=== PATIENT | male | born 1950 | race Hispanic/Latino ===

== ENCOUNTER 2018-05-15 06:36 | Day surgery (SDC) | payer MEDICARE, MEDICAID ==
[2018-05-15] MEDS ORDERED: Lidocaine/Epinephrine 1% 1:100000 10 ML IJ ONE (06:53)
[2018-05-15] MEDS ORDERED: Oxymetazoline 0.05% Nasal Spray (30 ml) NS ONE ×2 (06:54→06:59)
[2018-05-15] MEDS ORDERED: ceFAZolin IV 1 gm in Dextrose 1 GM/50 ML BAG IVPB ONE ×2 (06:54→07:31)
[2018-05-15] MEDS ORDERED: EPINEPHrine 1:1000 Nasal Sol(30mL) ONE (06:54)
[2018-05-15 07:19] VITALS: TEMP 97.7
[2018-05-15] MEDS ORDERED: Dextrose 5%/0.45% NS 1,000 ML IV SCH (08:00)
[2018-05-15] MEDS ORDERED: Acetaminophen-Codeine 300/30 mg Tab PO PRN (08:00)
[2018-05-15] MEDS ORDERED: Propofol 10 mg/ml Inj (20 ML) ONE (08:01)
[2018-05-15] MEDS ORDERED: Midazolam 2 MG/2 ML VIAL ONE (08:01)
[2018-05-15] MEDS ORDERED: Rocuronium 10 mg/ml (5 ml) ONE (08:19)
[2018-05-15] MEDS ORDERED: Succinylcholine Chloride 20 mg/ml Syr (5 ml) IV ONE (08:19)
[2018-05-15] MEDS ORDERED: Etomidate 20 mg/10ml Inj IV ONE (08:19)
[2018-05-15] MEDS ORDERED: Neostigmine Methylsulfate 3mg/3ml Syringe IV ONE (08:32)
[2018-05-15 11:18] VITALS: RESP 16; O2SAT 95
[2018-05-15 11:47] VITALS: BP 143/78; PULSE 83
--- NOTE | 2018-05-15 19:25 | OP ---
PROCEDURE DATE: 05/15/2018 PREOPERATIVE DIAGNOSIS: Nasopharyngeal mass. POSTOPERATIVE DIAGNOSIS: Nasopharyngeal mass. PROCEDURE: Endoscopic nasopharyngeal mass biopsy. SIGNIFICANT FINDINGS: Nasopharyngeal mass. DESCRIPTION OF PROCEDURE: The patient was brought into the room, placed in supine position. Anesthesia was initiated through an ET tube. The patient was draped in the usual manner. Adrenaline-soaked pledgets were inserted into the nasal cavity. They remained there for 5 minutes and removed. A 0-degree scope was inserted into the left nasal cavity, passed into the nasopharynx. Nasopharyngeal mass was noted. Multiple biopsies were taken using forceps. Bleeding was controlled using suction cautery and adrenaline-soaked pledgets. The scope was removed. The patient was taken off anesthesia and taken to recovery room in stable manner. Wolfgang Mei MD
== END 2018-05-15 11:45 | disposition home or self-care (01) ==
LOC: C.SDS 06:36
PROVIDERS: ATTEND Otolaryngology
DX: J34.9 Unspecified disorder of nose and nasal sinuses (principal)
CPT/HCPCS: 42804; 88307; J0690; J2250; J2704; J2710; J3010

== ENCOUNTER 2018-06-29 06:03 | Day surgery (SDC) | payer MEDICARE, MEDICAID ==
[2018-06-29] MEDS ORDERED: ceFAZolin 1 gm FROZEN Premix 1 GM/50 ML ML IVPB ONE (08:37)
[2018-06-29] MEDS ORDERED: Succinylcholine Chloride 20 mg/ml Syr (5 ml) IV ONE (08:40)
[2018-06-29] MEDS ORDERED: Propofol 10 mg/ml Inj (20 ML) ONE ×2 (08:41→09:02)
[2018-06-29] MEDS ORDERED: HYDROmorphone 0.5 mg/0.5 ml ISec IVP PRN (09:00)
[2018-06-29] MEDS ORDERED: Labetalol 5mg/ml (4ml) ONE (09:13)
[2018-06-29] MEDS ORDERED: ePHEDrine 50 mg/ml Inj ONE (09:17)
[2018-06-29] MEDS ORDERED: Naloxone 0.4 mg/ml Inj (Adult) ONE (09:24)
[2018-06-29 09:53] VITALS: TEMP 97.1; O2SAT 98
[2018-06-29] MEDS ORDERED: Morphine 10 mg/5 ml Oral Soln PO PRN (09:53)
[2018-06-29] MEDS ORDERED: Dextrose 5%/0.45% NS 1,000 ML IV SCH (10:00)
[2018-06-29 10:07] VITALS: PULSE 77; RESP 12
[2018-06-29 11:14] VITALS: BP 159/76
--- NOTE | 2018-06-29 15:29 | OP ---
PROCEDURE DATE: 06/29/2018 PREOPERATIVE DIAGNOSIS: Large adenoids. POSTOPERATIVE DIAGNOSIS: Large adenoids. PROCEDURE: Adenoidectomy. SIGNIFICANT FINDINGS: Enlarged adenoids. DESCRIPTION OF PROCEDURE The patient was brought into room, placed in supine position. Anesthesia was initiated through an ET tube. Shoulder roll was placed and neck extended. The patient was draped in usual manner. Mouth gag was placed in oral cavity, opened and suspended on the Neil clipper machine operator the usual manner. Red rubber catheters were inserted into the nasal cavity, taken out of mouth and clamped in order to provide retraction of soft palate. Mirror was used to visualize the adenoids which were noted to be enlarged. Curette was used to remove the adenoids. Bleeding was controlled using tonsil sponges and suction cautery. The mouth gag was then taken down and removed. The red rubber catheters were removed. The patient was taken off anesthesia and taken to recovery room in stable manner. Wolfgang Mei MD
== END 2018-06-29 11:15 | disposition home or self-care (01) ==
LOC: C.SDS 06:03
PROVIDERS: ATTEND Otolaryngology
DX: J35.2 Hypertrophy of adenoids (principal)
CPT/HCPCS: 42831; 88304; J0690; J1100; J1170; J2001; J2310; J2405; J2704; J3010; J7040

== ENCOUNTER 2018-09-13 08:55 | Day surgery (SDC) | payer MEDICARE, MEDICAID | END 2018-09-13 11:25 | disposition home or self-care (01) | LOC: C.ENDO 08:55 | DX: Z12.11 Encounter for screening for malignant neoplasm of colon (principal) ==